=== PATIENT | female | born 1975 | race Caucasian/White ===

== ENCOUNTER 2018-06-06 07:40 | Emergency (ER) | payer MEDICAID | END 2018-06-06 09:32 | disposition home or self-care (01) | LOC: FTE 07:40 | DX: M54.2 Cervicalgia (principal) | CPT/HCPCS: 70450; 72125; 81025; 99284-25 ==

== ENCOUNTER 2018-07-08 16:04 | Emergency (ER) | payer SELFPAY, MEDICAID | END 2018-07-08 17:08 | disposition left against medical advice (07) | LOC: FTE 16:04 | DX: Z53.21 Procedure and treatment not carried out due to patient leaving prior to being seen by health care provider (principal) ==